=== PATIENT | female | born 1930 | race Caucasian/White ===

== ENCOUNTER 2016-08-05 14:57 | Outpatient (CLI) | payer MEDICARE, OTHER ==
[2016-08-05 15:17] LABS: BASOPHILS % 0.2 (0.0-1.5); EOSINOPHILS % 0.8 % (0.0-6.8); LYMPHOCYTES # 1.6 # k/uL (0.6-4.0); MEAN CORPUSCULAR HEMOGLOBIN 31.7 pg (28.0-34.0); MONOCYTES # 0.4 # k/uL (0.0-0.9); MONOCYTES % 5.8 % (0.0-11.0); NEUTROPHILS # 5.2 # k/uL (1.4-7.7)
== END 2016-08-05 15:00 ==
LOC: LAB 14:57
PROVIDERS: ATTEND Physician Assistant
DX: K92.1 Melena (principal)
CPT/HCPCS: 36415; 82270; 85025

== ENCOUNTER 2016-11-21 11:12 | Outpatient (CLI) | payer MEDICARE, OTHER ==
[2016-11-21 11:52] LABS: BASOPHILS % 0.7 (0.0-1.5); EOSINOPHILS % 1.4 % (0.0-6.8); MEAN CORPUSCULAR HEMOGLOBIN 31.4 pg (28.0-34.0); MEAN CORPUSCULAR VOLUME 93.7 fl (80.0-100.0); MONOCYTES % 7.6 % (0.0-11.0); NEUTROPHILS # 2.9 # k/uL (1.4-7.7)
[2016-11-21 12:15] LABS: eGFR (African) > 60; eGFR (Non-African) > 60
--- NOTE | 2016-11-21 14:12 | Diagnostic Imaging Report ---
MEME NOBLES [facility] [address] [facility] [address] [place] [address]. [id number] Report Submission Date: Nov 21, 2016 1:49:35 PM CDT Patient Study Name: AUGIE LOMBARDI Date: Nov 21, 2016 11:21:08 AM CDT Modality Type: CR Gender: F Description: LOWER EXTREMITY : 34 Institution: [facility] Physician: MEME NOBLES Left knee -two views CLINICAL HISTORY: Pain and swelling for the last week. FINDINGS: Examination left knee in AP and lateral views demonstrates degenerative changes with narrowing of the joint space worse medially. There is mild prominence of the tibial spines. There is no evident fracture. Vascular calcification is incidentally noted. There are surgical clips in the medial aspect of the leg and thigh consistent with prior vascular surgery. IMPRESSION: Degenerative changes in the knee that are worst in the medial compartment. No fracture. Electronically signed on Nov 21, 2016 1:49:35 PM CDT by: Eliseo JACOBSON
== END 2016-11-21 13:50 ==
LOC: LAB 11:12
PROVIDERS: ATTEND Physician Assistant
DX: M25.562 Pain in left knee (principal); W57.XXXA Bitten or stung by nonvenomous insect and other nonvenomous arthropods, initial encounter
CPT/HCPCS: 36415; 73560; 80053; 85025; 86618; 86666; 86757

== ENCOUNTER 2017-04-29 09:47 | Outpatient (CLI) | payer MEDICARE, OTHER ==
[2017-04-29 10:04] LABS: BASOPHILS % 0.8 (0.0-1.5); MEAN CORPUSCULAR HEMOGLOBIN 31.7 pg (28.0-34.0); MEAN CORPUSCULAR VOLUME 99.1 fl (80.0-100.0); MONOCYTES % 6.1 % (0.0-11.0); NEUTROPHILS # 3.8 # k/uL (1.4-7.7)
[2017-04-29 10:27] LABS: eGFR (African) > 60; eGFR (Non-African) > 60
== END 2017-04-29 09:50 ==
LOC: LAB 09:47
PROVIDERS: ATTEND Physician Assistant
DX: R35.0 Frequency of micturition (principal); Z87.19 Personal history of other diseases of the digestive system; E87.0 Hyperosmolality and hypernatremia; K92.1 Melena
CPT/HCPCS: 36415; 80053; 85025; 87086; 87186

== ENCOUNTER 2017-05-11 12:20 | Outpatient (CLI) | payer MEDICARE, OTHER ==
[2017-05-11 13:15] LABS: eGFR (African) > 60; eGFR (Non-African) > 60
--- NOTE | 2017-05-11 15:15 | Diagnostic Imaging Report ---
OSCAR SHELL [facility] [address] [facility] [address] [address] Report Submission Date: May 11, 2017 3:09:30 PM LAMINATING MACHINE OPERATOR HELPER Patient Study Name: AUGIE LOMBARDI Date: May 11, 2017 2:23:12 PM LAMINATING MACHINE OPERATOR HELPER Modality Type: CT\SR Gender: F Description: CT ABD & PELVIS W/ CON : 32 Institution: [facility] Physician: OSCAR SHELL Examination: CT Abdomen/pelvis History: Left abdominal discomfort Comparison exams: None available Technique: CT Abdomen/pelvis with IV protocol. Findings: Liver demonstrates diffuse low attenuation. Peripheral nodularity. No central enhancing lesion. Spleen, adrenals, pancreas, kidneys and gallbladder are without gross irregularity. No abnormal enhancement. No gallstone. No suspicious renal calcifications. Ureters not well visualized in their course through the abdomen and pelvis. Bladder margins are within normal limits. Atherosclerotic disease of the abdominal aorta. Aorta tortuous in its coarse through the abdomen. Infrarenal prominence to 2.9 cm. Cardiac silhouette only faintly visualized. Contrast within the bowel. No abnormal dilation. Few scattered loops of mildly prominent small bowel with air-fluid levels. Stool within the large bowel limiting sensitivity. No free fluid. Numerous sigmoid diverticula. No obvious adjacent inflammation. Appendix not visualized. Hiatal hernia. Osseous structures demonstrates diffuse osteopenia. Curvature to the right. Extensive degenerative changes. Lung bases demonstrate parenchymal scarring and emphysematous changes. No effusion. Impression: Stool throughout the large bowel suggesting component of constipation. Sigmoid diverticulosis. No obvious diverticulitis. Few prominent loops of small bowel with air-fluid levels - mild enteritis. No gallstone. No suspicious renal calcifications. Fatty liver with suggestion for some mild peripheral nodularity - correlate with any underlying hepatic process. Infrarenal aortic prominence a 2.9 cm. Hiatal hernia. Lung base scarring and emphysematous changes. No effusion. Given reported history black stools, recommend dedicated large bowel imaging to further evaluate. Electronically signed on May 11, 2017 3:09:30 PM LAMINATING MACHINE OPERATOR HELPER by: Jose JACOBSON
== END 2017-05-11 12:21 ==
LOC: RAD 12:20
PROVIDERS: ATTEND Family Medicine
DX: R10.32 Left lower quadrant pain (principal)
CPT/HCPCS: 36415; 74177; 80053; 87086; Q9966; Q9967

== ENCOUNTER 2017-06-29 08:12 | Outpatient (CLI) | payer MEDICARE, OTHER ==
[2017-06-29 09:21] LABS: eGFR (African) > 60; eGFR (Non-African) > 60
== END 2017-06-29 08:13 ==
LOC: LAB 08:12
PROVIDERS: ATTEND Family Medicine
DX: I10 Essential (primary) hypertension (principal)
CPT/HCPCS: 36415; 80053; 80061

== ENCOUNTER 2018-04-23 14:33 | Outpatient (CLI) | payer MEDICARE, OTHER ==
[2018-04-23 15:27] LABS: BASOPHILS % 0.6 (0.0-1.5); EOSINOPHILS % 1.5 % (0.0-6.8); MEAN CORPUSCULAR HEMOGLOBIN 32.9 pg (28.0-34.0); MONOCYTES % 6.9 % (0.0-11.0); NEUTROPHILS # 4.4 # k/uL (1.4-7.7)
[2018-04-23 15:44] LABS: eGFR (Non-African) > 60
--- NOTE | 2018-04-23 19:09 | Diagnostic Imaging Report ---
LEBRON WAGNER [facility] [address] [facility] [address] [place], [place]. [address] Report Submission Date: Apr 23, 2018 6:36:52 PM MODEL HOME SALES GREETER Patient Study Name: AUGIE LOMBARDI Date: Apr 23, 2018 2:46:08 PM MODEL HOME SALES GREETER Modality Type: DX Gender: F Description: CHEST : 32 Institution: [facility] Physician: LEBRON WAGNER 2 views of the chest History: CXR, PANLOBULAR EMPHYSEMA, PT STATES COUGH/WEAKNESS/ DYSPNEA FOR ABOUT A MONTH. PT STATES HEART SURGERY IN 1998, BREAST IMPLANTS AND SMOKER Comparison: None available Heart is normal in size. Aorta is tortuous. Patient is post sternotomy. Bilateral breast implants are seen. No obvious pleural effusion. Minimal left base opacity. No pneumothorax. Vague density is noted at the mediastinum, indeterminate. Multilevel thoracic spine degenerative changes. Hyperinflated lungs Impression: 1. Emphysema. Minimal lingular atelectasis /infiltrate. Tortuous aorta. 2. Vague density in the mediastinum is indeterminate, may be related to superimposition of vascular structures. Consider elective CT chest evaluation. Electronically signed on Apr 23, 2018 6:36:52 PM MODEL HOME SALES GREETER by: Lou JACOBSON
== END 2018-04-23 14:38 | disposition home or self-care (01) ==
LOC: LAB 14:33
PROVIDERS: ATTEND Family Medicine
DX: J43.1 Panlobular emphysema (principal); I10 Essential (primary) hypertension
CPT/HCPCS: 36415; 71046; 80053; 85025

== ENCOUNTER 2018-05-14 13:19 | Outpatient (CLI) | payer MEDICARE, OTHER ==
[2018-05-14 14:37] LABS: eGFR (Non-African) > 60
== END 2018-05-14 13:24 ==
LOC: LAB 13:19
PROVIDERS: ATTEND Family Medicine
DX: I10 Essential (primary) hypertension (principal)
CPT/HCPCS: 36415; 80053

== ENCOUNTER 2018-12-08 13:30 | Outpatient (CLI) | payer MEDICARE, OTHER ==
--- NOTE | 2018-12-17 15:19 | OP Clinic Progress Note ---
DATE OF VISIT: 12/08/2018 CHIEF COMPLAINT: Low back pain. HISTORY OF PRESENT ILLNESS: Ms. Macias returns after her initial visit 2 weeks ago. At that time, the patient presented with significant lower back pain. She had previous findings on imaging of L3-L4 and L4-L5 endplate fractures without description of true compression fracture. The patient had significant tenderness at that level in the lumbar spine with direct palpation and with activities of daily living at home, including bending and lifting or other activities involved in daily life or housework. I had prescribed gabapentin for this patient, as well as Robaxin and ibuprofen. I had considered the patient for a lumbar epidural steroid injection and ordered a lumbar back brace. The patient returns today with marked improvement in her overall level of complaint. The patient has very little in the way of pain and is doing well with medication alone. The patient did purchase an vmef-gbc-agoymhc back brace which does provide some relief. 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 The patient identifies the area of pain in the right superior portion of the iliac crest in the lateral hip. PHYSICAL EXAMINATION: The patient is awake and alert. Vital signs are stable. Heart is regular in rate and rhythm. Eyes PERRLA. Throat clear. Trachea midline. Lungs have good excursion. The patient has no significant tenderness in the lumbar spine or in the right iliac crest region. The patient has no significant tenderness at the L3-L4 or L4-L5 region. The patient still has somewhat of an antalgic gait with ambulation. DIAGNOSES: 1. Scoliosis. 2. Post-laminectomy pain syndrome. 3. L3-L4 endplate fracture. 4. L4-L5 disc bulge. 5. Lumbar disc displacement. 6. Right hip pain at iliac crest. PLAN AT THIS TIME: I would recommend that Ms. Macias return the hptw-pjd-jglload back brace that she has purchased. We will need to try and get a back brace ordered through Mr. John Resendez. I do not know if he will service this patient in the [place], [place] area from his residence in the [facility]. If he does not, we will see if he can recommend someone in the [place], [place] area. We will refill her medications. I have increased her gabapentin to 300 mg q.8h. I would otherwise have this patient follow back in 1 months time. Sincerely, Bill España M.D. (dictated but not read) computer generated signature MN/pre NOTE: Time spent with this patient was approximately 25 minutes today. MTDD
== END 2018-12-08 14:00 ==
LOC: OUT 13:30
PROVIDERS: ATTEND Pain Medicine Interventional Pain Medicine
DX: M96.1 Postlaminectomy syndrome, not elsewhere classified (principal); M51.26 Other intervertebral disc displacement, lumbar region; S32.039A Unspecified fracture of third lumbar vertebra, initial encounter for closed fracture; S32.049A Unspecified fracture of fourth lumbar vertebra, initial encounter for closed fracture
CPT/HCPCS: 99214

== ENCOUNTER 2019-01-06 10:27 | Outpatient (CLI) | payer MEDICARE, OTHER ==
--- NOTE | 2019-01-19 09:52 | OP Clinic Progress Note ---
DRAFT CHIEF COMPLAINT: Low back pain. HISTORY OF PRESENT ILLNESS: Ms. Franco returns in followup today for her low back pain. She had previous findings on imaging of L3-4 and L4-5 with endplate fractures without description of true compression fracture. The patient did have significant tenderness at those levels with direct palpation and was having difficulties with ADLs including bending and lifting or other activities involved in daily life or housework. Dr. España has started this patient on gabapentin, Robaxin and ibuprofen and the patient has had marked improvement in her overall level of pain. She does tell me that she only needs to take the gabapentin morning and night, and this is controlling her pain. Apparently, the patient did purchase an vaio-guh-ogtaroa back brace that did provide some relief. Dr. España had wanted her to have a prescription lumbar support orthotic ordered through our [facility] company. The patient was supposed to return the other brace, however, has not done so nor has she heard in followup from [facility]. I will follow up on this for her today. The patient continues on Robaxin and gabapentin with over the counter ibuprofen with improvement in her pain symptoms. She denies any medication side effects or concerns at this time. REVIEW OF SYSTEMS: A full review of systems was performed today, and all areas were negative except for musculoskeletal where she does report low back pain. PHYSICAL EXAMINATION: General: This is an elderly female patient presenting in [facility]. Vital Signs: Reviewed and stable. See scanned documentation. Psych: She is alert and oriented x 3. She is calm, pleasant and cooperative. HEENT: Normal cephalic and atraumatic. Sclera is clear. Musculoskeletal: The patient just has slight tenderness to palpation about the L3-4 and L4-5 spine levels. She does walk with an antalgic gait. Neuro: Cranial nerves 2-12 are grossly intact. IMPRESSION: 1. Scoliosis. 2. Post laminectomy pain syndrome. 3. L3, L4 end plate fracture. 4. L4-5 disc bulge. 5. Lumbar disc replacement. PLAN: 1. Again, I have advised the patient to return gufd-kdx-voiwoto back brace and I have contacted John Resendze at [facility] to get her a prescription LSO. 2. Today I have refilled her medications, gabapentin 300 mg 1 p.o. b.i.d. dispense #60 with no refills as well as Robaxin 500 mg 1 p.o. b.i.d. p.r.n. muscle spasms dispense #60 with no refills. 3. The patient is to follow up in one month or sooner if needed. The patient did verbalize understanding and agrees to the current treatment plan. Ivy Parr NP Nurse Practitioner (Dictated but not read) Jil JOB#: [id number] MTDD
== END 2019-01-06 11:10 ==
LOC: OUT 10:27
PROVIDERS: ATTEND Nurse Practitioner Adult Health
DX: M41.9 Scoliosis, unspecified (principal); M51.26 Other intervertebral disc displacement, lumbar region; S32.039A Unspecified fracture of third lumbar vertebra, initial encounter for closed fracture; S32.049A Unspecified fracture of fourth lumbar vertebra, initial encounter for closed fracture
CPT/HCPCS: 99213

== ENCOUNTER 2019-02-15 10:55 | Outpatient (CLI) | payer MEDICARE, OTHER ==
--- NOTE | 2019-02-16 12:31 | OP Clinic Progress Note ---
DATE OF SERVICE: 02/15/2019 CHIEF COMPLAINT: Low back pain. HISTORY OF PRESENT ILLNESS: Ms. Franco returns in follow-up today for her low back pain. Her previous imaging revealed findings of L3-4 and L4-5 endplate fractures without description of a true compression fracture. At the time of initial evaluation the patient did have significant tenderness at those levels with palpation and was having difficulty performing activities of daily living. The patient was started on gabapentin, Robaxin, and ibuprofen with improvement in overall pain. The patient is able to complete her activities of daily living without much difficulty. The patient did purchase an qosj-nwg-lhulcbw back brace and I did write for a new LSO through [facility], however, they have been unable to dispense this as she has already received the low back support brace from a local DME provider. Today I am going to reorder the LSO that I would prefer the patient to have and she is going to take her previously dispensed brace back to the local DME supplier and they hopefully will exchange for the preferred LSO that I have ordered. The patient continues on Robaxin and gabapentin with zpsh-nvb-hzqffrk ibuprofen with improvement in her pain symptoms. She denies any medication side effects or concerns at this time. REVIEW OF SYSTEMS: A full review of systems was performed today and all areas were negative except for musculoskeletal where she does report back pain. PHYSICAL EXAMINATION: General: This is an elderly female patient presenting in no acute distress. Vital Signs: The patient is 54 tall. She weighs 141 lbs. Temperature is 97.8, pulse is 71, respiratory rate is 18. Blood pressure is 147/73, with an SAO2 of 96% on room air. She is rating her pain 8/10 today. Psych: She is alert and oriented x3. She is calm, pleasant and cooperative. HEENT: She is normocephalic and atraumatic. Pupils are equal and round, without miosis. Sclerae are clear. Musculoskeletal: The patient has slight tenderness to palpation about the L3-4 and L4-5 spinous processes. The patient does walk with an antalgic gait, with a straight cane. Neurologic: Cranial nerves 2-12 are grossly intact. Sensation to light touch is intact bilateral lower extremities. IMPRESSION: 1. Scoliosis. 2. Post laminectomy pain syndrome. 3. L3, L4 endplate fractures. 4. L4-5 disc bulge. 5. Lumbar disc displacement. PLAN: 1. As stated above, I ordered the LSO that I would prefer the patient to have. She is to take this order and her old back brace back to the DME supplier and hopefully they will exchange it for the preferred brace. 2. I have refilled her gabapentin 300 mg 1 p.o. b.i.d., dispense #60 with 2 refills as well as Robaxin 500 mg 1 p.o. b.i.d. p.r.n. muscle spasms, dispense #60 with 2 refills. The patient can continue kqbq-jzs-zjzaaia ibuprofen as needed. She has been advised to take this with food. She has been advised to stop grvm-ulc-vzgexln ibuprofen if she develops GI symptoms. 3. The patient is to follow up in 2-3 months or sooner if needed. The patient did verbalize understanding and agreed to the current treatment plan. Thank you for your kind referral. Sincerely, Ivy Parr, RACHELLE Nurse Practitioner (Dictated but not read) Mane JOB#: [id number] Cc: Dr. Kristopher JACOBSON
== END 2019-02-15 11:55 ==
LOC: OUT 10:55
PROVIDERS: ATTEND Nurse Practitioner Adult Health
DX: M96.1 Postlaminectomy syndrome, not elsewhere classified (principal); M51.26 Other intervertebral disc displacement, lumbar region; S32.039A Unspecified fracture of third lumbar vertebra, initial encounter for closed fracture; S32.049A Unspecified fracture of fourth lumbar vertebra, initial encounter for closed fracture; X50.9XXA Other and unspecified overexertion or strenuous movements or postures, initial encounter
CPT/HCPCS: 99213; G0463

== ENCOUNTER 2019-05-17 10:28 | Outpatient (CLI) | payer MEDICARE, OTHER ==
--- NOTE | 2019-05-18 13:00 | OP Clinic Progress Note ---
DATE OF VISIT: 05/17/2019 CHIEF COMPLAINT: Low back pain. HISTORY OF PRESENT ILLNESS: Ms. Franco is an 89-year-old female here for follow-up low back pain. Her previously ordered imaging reveals findings of L3- 4 and L4-5 endplate fractures without description of true compression fractures. Initially, the patient did have tenderness to palpation at those levels and was having difficulty performing activities of daily living. The patient was started on gabapentin, Robaxin and ibuprofen with improvement in her pain symptoms. The patient tells me today though that she has had too much difficulty with loose stools and has stopped these medications. She really has not had resolution in her loose stools since stopping the medications I prescribed. She does have some associated intermittent nausea, reflux, and just recently had some right upper quadrant pain; however, this resolved. She denies any vomiting or blood in her stools. She denies fever. The patient has not seen Dr. He, her PCP, to review possible causes for her loose stools. I did encourage her to go ahead and make an appointment for follow-up. The patient also indicates to me that the gabapentin caused her to have double vision and dizziness/lightheadedness. Now the patient is taking afqe-hgy-bkovtat Tylenol and ibuprofen with improvement in her pain symptoms. She also uses the Salonpas patches and a topical pain reliever. She is wearing the lumbar support orthotic that we ordered for her and this does help her with daily activities when she is up for any amount of time. The patient asked about injections today, which I did advise we could proceed with. The patient tells me that she really wants to only do this as her last resort. PMFSH reviewed and unchanged. REVIEW OF SYSTEMS: A full review of systems was performed and all areas were negative except for musculoskeletal where she does report back pain. OBJECTIVE: General: This is an elderly female patient presenting in [facility]. Vital Signs: The patient is 5 feet, 3 inches tall, weighs 142 pounds. Temperature is 98.4, pulse 70, respiratory rate is 18, blood pressure is 140/67 with an SaO2 of 98% on room air. She is rating her pain 5/10 today. Psych: She is alert and oriented x3. She is calm, pleasant and cooperative. She is accompanied by her daughter. HEENT: She is normocephalic and atraumatic. Pupils are equal and round without miosis. Sclerae are clear. Musculoskeletal: The patient has slight tenderness to palpation about the L3-4, L4-5 spinous processes. The patient does walk with an antalgic gait with a straight cane. Neuro: Cranial nerves II through XII are grossly intact. Sensation to light touch is intact, bilateral lower extremities. ASSESSMENT: 1. Scoliosis. 2. Post-laminectomy pain syndrome. 3. L3, L4 endplate fractures. 4. L4-5 disc bulge. 5. Lumbar disc displacement. 6. Diarrhea. PLAN: 1. The patient is to continue to wear the LSO when she is up to help her with daily activities. 2. For now, we will discontinue her gabapentin and Robaxin. She can continue the feaw-tqt-idhbrkg Tylenol, ibuprofen, Salonpas patches as well as topical pain reliever. 3. If her low back pain symptoms should worsen and she wishes to move forward with injections, we certainly can do this. She just needs to follow up with me in the office to get this coordinated. The patient and her daughter verbalize understanding and agree to the current plan. EL Nelsonurse Practitioner /[employer] [id number] Job #[id number] cc: Kristopher He MD MTDGujnan
== END 2019-05-17 11:28 ==
LOC: OUT 10:28
PROVIDERS: ATTEND Nurse Practitioner Adult Health
DX: S32.038A Other fracture of third lumbar vertebra, initial encounter for closed fracture (principal); S32.048A Other fracture of fourth lumbar vertebra, initial encounter for closed fracture; M96.1 Postlaminectomy syndrome, not elsewhere classified; M51.26 Other intervertebral disc displacement, lumbar region; R19.7 Diarrhea, unspecified; X58.XXXA Exposure to other specified factors, initial encounter
CPT/HCPCS: 99213; G0463